=== PATIENT | male | born 1950 | race Caucasian/White ===

== ENCOUNTER 2017-01-09 06:29 | Day surgery (SDC) | payer BC, MEDICARE ==
[2017-01-05 15:20] VITALS: BMI 31.1
[~2017-01-09 06:29] MED LIST: ALPRAZolam 0.25 MG TAB PO PRN; ALPRAZolam 0.5 MG TAB PO PRN; ASPIRIN 325 MG TAB PO STA; ATORVASTATIN 80 MG TAB PO STA; NITROGLYCERIN SL TABS 0.4 MG TAB SUBLINGUAL PRN; SODIUM CHLORIDE 0.9% 1,000 ML in EMPTY BAG 1 BAG IV ONE
[2017-01-09 07:00] VITALS: RESP 16
[2017-01-09] MEDS ORDERED: SODIUM CHLORIDE 0.9% 1,000 ML IV ONE (07:05)
[2017-01-09 07:29] LABS: Aty Lym Flag Slight; CH 32.6; CHCM 35.3; HDW 2.72; HGB 15.1 gm/dL (13.0-17.5); MCHC 34.4 g/dL (31.0-37.0); MCV 92.9 fL (80.0-100.0); Mean Platelet Volume 6.4; RBC 4.74 m/uL (4.30-5.90); RDW 12.8 % (11.5-15.5); WBC 5.3 k/uL (3.8-10.6); WBC (Perox) 5.06
[2017-01-09] MEDS ORDERED: fentaNYL (PF) 50 MCG/ML 2 ML AMP IV ONE (07:35)
[2017-01-09 07:36] LABS: Anion Gap 9 mmol/L; Blood Urea Nitrogen 21 mg/dL (9-20); Calcium 9.2 mg/dL (8.4-10.2); Carbon Dioxide 25 mmol/L (22-30); Chloride 108 mmol/L (98-107); Glucose 96 mg/dL (74-99); Non-African American GFR(MDRD) >60 (>60 ml/min/1.73 sqM); Potassium 4.9 mmol/L (3.5-5.1); Sodium 142 mmol/L (137-145)
[2017-01-09] MEDS ORDERED: LIDOCAINE 2% INJ 20 MG/ML SQ ONE (07:40)
[2017-01-09] MEDS ORDERED: VERAPAMIL 2.5 MG/ML 4 ML VIAL INTRAARTER ONE (07:41)
[2017-01-09] MEDS ORDERED: HEPARIN SODIUM 1,000 UNIT/ML VIAL IV ONE (07:42)
[2017-01-09] MEDS ORDERED: IOHEXOL 350 MG/ML 100 ML BOTTLE INJ ONE (08:01)
[2017-01-09] MEDS ORDERED: RX INFO: IV CONTRAST WAS GIVEN 1 EACH MISC MISCELLANE PRN (08:10)
[2017-01-09] MEDS ORDERED: SODIUM CHLORIDE 0.9% 1,000 ML IV SCH (08:15)
[2017-01-09 08:17] VITALS: TEMP 97.2
[2017-01-09 08:28] LABS: Add Differential Manual Differential
[2017-01-09 08:36] LABS: Nucleated Red Blood Cells 0 /100 WBC (0-0); Total Cells Counted 100
[2017-01-09] MEDS ORDERED: METOPROLOL TARTRATE 25 MG TAB PO SCH (09:00)
--- NOTE | 2017-01-09 12:19 | CC ---
DATE OF SERVICE: Mr. Casillas is a 66-year-old male with a history of hyperlipidemia, who has been complaining of dyspnea on exertion, had myocardial perfusion imaging that revealed predominantly fixed inferobasal wall defect, with segmental wall motion abnormality. In view of that, recommendation was made regarding cardiac catheterization. The procedure as well as the risks and complications were discussed with the patient, who is in full understanding and agreement. 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 Selective right and left coronary angiography was performed using a 5 [place] 3-1/2 Bend right Patsy catheters. Multiple views of views of the coronary artery including hemiaxial views were obtained. Following that, a 5 [place] tight pigtail catheter was introduced into the left ventricle and a and 30 degrees SANTOYO view of the left ventricle was obtained. Following that, catheter and sheaths were removed. Hemostasis was obtained with and a TR band. There were no immediate complications. Patient is returned to his room in stable condition. Of note, the patient received 5000 units of intravenous heparin as well as intra-arterial verapamil. FINDINGS: LEFT MAIN: This is a large-size vessel bifurcating to left circumflex and left anterior descending artery. Left main coronary artery has no evidence of high-grade stenosis. Left anterior descending artery: This is a large-size vessel reaching toward the apex with a wrap around the apex segment, giving rise to a diagonal branch. The left anterior descending artery as well as its branches have no evidence of obstructive coronary artery disease. Left circumflex: This is a nondominant vessel, giving rise to a large obtuse marginal branch. The obtuse marginal branch has 40% plaque in the mid segment. The rest of the vessel has no high-grade stenosis. RIGHT CORONARY ARTERY: This vessel is totally occluded proximally with no antegrade flow. 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 Left ventriculogram: Left ventriculogram was performed in 30 degrees SANTOYO view and revealed a normal left ventricular size with minimal inferior wall hypokinesis. Estimated ejection fraction 50%. There was no significant mitral regurgitation. HEMODYNAMICS: There was no gradient across the aortic valve. The left ventricle end-diastolic pressure was 18 to 20 mm of mercury. CONCLUSION: 1. Chronically occluded proximal right coronary artery with no significant antegrade flow. 2. Mild to moderate disease in the obtuse marginal branch. 3. Good collaterals from the left coronary system toward the right PDA. 4. Minimally impaired left ventricular systolic function. RECOMMENDATION: In view of findings and anatomy, I recommend to continue medical therapy with aggressive risk management be initiated. Those findings and recommendations were discussed with the patient and his family, who are in full understanding and agreement. GRICEL
[2017-01-09 12:20] VITALS: BP 120/65; PULSE 60
--- NOTE | 2017-01-09 12:23 | LTR ---
January 09, 2017 Dr. Grant RE: Mack Casillas I had the opportunity to perform cardiac catheterization on Mr. Casillas at [facility] on the december and a full copy of the procedure note will be forwarded to you. In brief, he was found to have chronically occluded proximal right coronary artery with collateral from the left system at this time on maximize medical therapy and depending on his progress, further recommendation will be made. I will keep you updated on his progress. Thank you for allowing me the opportunity to participate in his care. Please call me if you have any questions. Sincerely, XUAN GARCIA MD
[2017-01-10] MEDS ORDERED: ASPIRIN 81 MG CHEW PO SCH (09:00)
[2017-01-10] MEDS ORDERED: ATORVASTATIN 40 MG TAB PO SCH (09:00)
== END 2017-01-09 12:54 | disposition home or self-care (01) ==
LOC: CATHCVL 06:29
PROVIDERS: ATTEND Internal Medicine Interventional Cardiology
DX: I25.10 Atherosclerotic heart disease of native coronary artery without angina pectoris (principal); I25.82 Chronic total occlusion of coronary artery; I25.5 Ischemic cardiomyopathy; E78.2 Mixed hyperlipidemia; I49.8 Other specified cardiac arrhythmias; Z88.5 Allergy status to narcotic agent; Z79.82 Long term (current) use of aspirin; Z79.899 Other long term (current) drug therapy
CPT/HCPCS: 93458; 80048; 85025; 99152; 99153; C1894; C1769; J2001; Q9967; J3010; J1644

== ENCOUNTER → 2024-03-27 | Outpatient (CLI) | payer MEDICARE ==
--- NOTE | 2024-03-27 12:05 | MR ---
EXAMINATION TYPE: MR shoulder RT wo con DATE OF EXAM: 03/27/2024 COMPARISON: X-ray 03/13/2020 HISTORY: Right shoulder pain, hx injury. TECHNIQUE: Multiplanar, multisequence imaging of the right shoulder is performed without contrast. FINDINGS: Rotator Cuff: There is abnormal signal along the undersurface of the anterior fibers of the insertion of the supraspinatus tendon compatible with a partial tear. No retraction. Thickening and adjacent s ignal along the distal margin of the tendon compatible with tendinosis. There is increased signal of the distal fibers and insertion of the infraspinatus tendon compatible w ith tendinosis. Subscapularis tendon intact. Acromioclavicular Joint: Hypertrophic arthropathy of the AC joint. There is mild mass effect upon the supraspinatus tendon muscle. Glenohumeral Joint: Maintained with trace amount of joint fluid. There is mild increased signal invol ving the humeral attachment of the inferior glenohumeral ligament. Labrum: Limited by motion artifact. The labrum appears grossly intact given limitation of non-arthrog matt study. Biceps Tendon: The long head of biceps is in normal location within bicipital groove. Bone marrow signal: No focal abnormal marrow signal is appreciated. Other: No additional significant abnormality is appreciated. IMPRESSION: 1. Tendinopathy of the distal supraspinatus tendon extending to the insertion with a partial undersur face tear of the anterior fibers measuring approximately 9 mm. No retraction. 2. Tendinosis of the distal fibers extending to the insertion of the infraspinatus tendon with no def initive evidence of tear. 3. Moderate hypertrophic AC joint arthropathy, correlate for impingement. 4. There is mild edema within the humeral attachment of the inferior glenohumeral ligament correlate for mild ligamentous strain or capsulitis.
== END | disposition home or self-care (01) ==
LOC: RADMRIMAIN 11:11
PROVIDERS: ATTEND Orthopaedic Surgery
DX: M19.011 Primary osteoarthritis, right shoulder (principal); M67.813 Other specified disorders of tendon, right shoulder; M75.111 Incomplete rotator cuff tear or rupture of right shoulder, not specified as traumatic

== ENCOUNTER → 2024-04-09 | Outpatient (CLI) | payer MEDICARE ==
[2024-04-09 16:10] LABS: ALT 20 U/L (10-49); AST 26 U/L (14-35); Albumin 4.4 g/dL (3.8-4.9); Albumin/Globulin Ratio 1.76 Ratio (1.60-3.17); Alkaline Phosphatase 127 U/L (41-126); Blood Urea Nitrogen 16.2 mg/dL (9.0-27.0); Calcium 9.4 mg/dL (8.7-10.3); Carbon Dioxide 27.1 mmol/L (21.6-31.8); Chloride 103 mmol/L (96-109); Chol/HDL Ratio 2.68 Ratio; Globulin 2.5 g/dL (1.6-3.3); Glucose 108 mg/dL (70-110); LDL Cholesterol,Calculated 64.2 mg/dL (0.0-131.0); Sodium 140 mmol/L (135-145); Total Bilirubin 0.7 mg/dL (0.3-1.2); Total Protein 6.9 g/dL (6.2-8.2)
[2024-04-09 18:15] LABS: Basophils # (A) 0.03 X 10*3/uL (0.00-0.10); Basophils % (A) 0.4 %; Eosinophils # (A) 0.27 X 10*3/uL (0.04-0.35); Eosinophils % (A) 3.8 %; HCT 46.8 % (39.6-50.0); HGB 15.6 g/dL (13.0-17.0); Lymphocytes # (A) 1.41 X 10*3/uL (0.90-5.00); Lymphocytes % (A) 19.8 %; MCH 32.2 pg (27.0-32.0); MCHC 33.3 g/dL (32.0-37.0); MCV 96.7 FL (80.0-97.0); Mean Platelet Volume 9.4 FL (9.5-12.2); Monocytes # (A) 0.66 X 10*3/uL (0.20-1.00); Monocytes % (A) 9.3 %; NRBC Per 100 WBC 0 X 10*3/uL (0.00-0.01); Neutrophils # (A) 4.74 X 10*3/uL (1.80-7.70); Neutrophils % (A) 66.4 %; Platelet Count 254 X 10*3/uL (140-440); RBC 4.84 X 10*6/uL (4.40-5.60); RDW 13.4 % (11.5-14.5); WBC 7.13 X 10*3/uL (4.50-10.00)
== END | disposition home or self-care (01) ==
LOC: LABPAT 08:00
PROVIDERS: ATTEND Orthopaedic Surgery
DX: Z01.812 Encounter for preprocedural laboratory examination (principal); E78.2 Mixed hyperlipidemia; M75.42 Impingement syndrome of left shoulder
CPT/HCPCS: 36415; 80053; 80061; 85025